=== PATIENT | female | born 1955 | race African-American/Black ===

== ENCOUNTER 2019-05-08 17:51 | Inpatient (IN) | payer OTHER, MEDICAID ==
[~2019-05-08] VITALS: Ht 157.5 cm; Wt 63.5 kg
[2019-05-08] MEDS ORDERED: IV NORMAL SALINE 1000ML BAG 1,000 ML IV ONE (19:00)
[2019-05-08] MEDS ORDERED: DEXAMETHASONE SOD PHOS 20 MG/5 ML VIAL. IV ONE (19:00)
[2019-05-08] MEDS ORDERED: IPRATRPIUM/ALBUTEROL 0.5/2.5MG 3 ML NEBU. NEB ONE (19:00)
--- NOTE | 2019-05-08 19:26 | PHYS DOC ---
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 She was diagnosed with small cell lung cancer May 2018 and completed chemotherapy and radiation in October 2018; scheduled for follow-up w/ body scan for this Wednesday, June 10 at [facility] on the [place]. Patient was seen and prescribed amoxicillin on Wednesday for bronchitis but has not noticed a change in her shortness of breath. Patient has had to elevate her head with 2 "fluffy" pillows to aid in her breathing when sleeping. Reports dizziness associated w/ coughing and standing from seated position; has caused the patient to fall several times this past year w/ most recent fall this past last week, no LOC or head trauma. Patient is not on oxygen at home. Denies sick contacts, strenuous activity, or other potentially identifiable inciting trigger. Review of Systems Review of Systems Constitutional: Denies fever or chills Eyes: Denies redness or eye pain HENT: Denies nasal congestion or sore throat Respiratory: Reports shortness of breath w/ productive cough of thin, clear sputum Cardiovascular: Denies chest pain or palpitations GI: Reports chronic intermittent constipation. Denies abdominal pain, nausea, vomiting, diarrhea, or hematochezia. : Denies dysuria or hematuria Musculoskeletal: Denies back pain or joint pain Integument: Denies rash or skin lesions Neurologic: Reports intermittent dizziness. Denies headache, focal weakness, sensory changes, or LOC. Complete systems were reviewed and found to be within normal limits, except as documented in this note. Current Medications Current Medications Current Medications Medications (Trade) Dose Ordered Sig/Galileo Start Time Stop Time Status Last Admin Dose Admin Acetaminophen (Tylenol) 500 mg 1X ONCE 05/08/19 23:00 05/08/19 23:01 DC 05/08/19 23:14 500 MG Albuterol/ Ipratropium (Duoneb) 3 ml 1X ONCE 05/08/19 19:00 05/08/19 19:01 DC 05/08/19 19:28 3 ML Alteplase, Recombinant (Cathflo For Central Catheter Clearance) 1 mg 1X ONCE 05/08/19 20:30 05/08/19 20:31 DC 05/08/19 20:24 1 MG Dexamethasone Sodium Phosphate (Decadron) 10 mg 1X ONCE 05/08/19 19:00 05/08/19 19:01 DC 05/08/19 23:07 10 MG Info (CONTRAST GIVEN -- Rx MONITORING) 1 each PRN DAILY PRN 05/08/19 21:30 05/10/19 21:29 Iohexol (Omnipaque 350 Mg/ml) 90 ml 1X ONCE 05/08/19 21:30 05/08/19 21:31 DC 05/08/19 21:46 90 ML Sodium Chloride 1,000 ml @ 1,000 mls/hr 1X ONCE 05/08/19 19:00 05/08/19 19:59 DC 05/08/19 23:07 1,000 MLS/HR Allergies Allergies Allergies Coded Allergies Type Severity Reaction Last Updated Verified No Known Drug Allergies 08/02/14 No Physical Exam Physical Exam Constitutional: pleasant, conversational, spoke w/o pausing, well developed, well nourished, no acute distress, non-toxic appearance HENT: Normocephalic, atraumatic, oropharynx moist Eyes: PERRL, EOMI, conjunctiva normal, no discharge Neck: Normal range of motion, no tenderness, supple, no cervical or supraclavicular LAD Cardiovascular: Heart RRR w/o gallops, rubs, or murmurs; UE radial pulse intact 2/4 b/l Lungs & Thorax: Bilateral breath sounds clear to auscultation, no wheezing Abdomen: soft, non-tender, non-distended Skin: mildly cool to touch, dry, no erythema, no rash Back: No tenderness, no CVA tenderness Extremities: No tenderness, no edema Neurologic: Alert and oriented X 3, normal motor function, normal sensory function, no focal deficits noted Psychologic: Affect normal, judgement normal, mood normal Current Patient Data Vital Signs Vital Signs Date Time Temp Pulse Resp B/P (MAP) Pulse Ox O2 Delivery O2 Flow Rate FiO2 05/09/19 00:00 110 121/63 (82) 94 Nasal Cannula 2.0 05/08/19 23:30 23 05/08/19 18:10 98.1 98.1 Lab Values Laboratory Tests Test 05/08/19 20:40 05/08/19 22:24 White Blood Count 5.3 x10^3/uL (4.0-11.0) Red Blood Count 3.80 x10^6/uL (3.50-5.40) Hemoglobin 11.3 g/dL (12.0-15.5) L Hematocrit 33.1 % (36.0-47.0) L Mean Corpuscular Volume 87 fL (79-100) Mean Corpuscular Hemoglobin 30 pg (25-35) Mean Corpuscular Hemoglobin Concent 34 g/dL (31-37) Red Cell Distribution Width 15.0 % (11.5-14.5) H Platelet Count 261 x10^3/uL (140-400) Neutrophils (%) (Auto) 84 % (31-73) H Lymphocytes (%) (Auto) 9 % (24-48) L Monocytes (%) (Auto) 6 % (0-9) Eosinophils (%) (Auto) 1 % (0-3) Basophils (%) (Auto) 0 % (0-3) Neutrophils # (Auto) 4.4 x10^3/uL (1.8-7.7) Lymphocytes # (Auto) 0.5 x10^3/uL (1.0-4.8) L Monocytes # (Auto) 0.3 x10^3/uL (0.0-1.1) Eosinophils # (Auto) 0.0 x10^3/uL (0.0-0.7) Basophils # (Auto) 0.0 x10^3/uL (0.0-0.2) Prothrombin Time 13.6 SEC (11.7-14.0) Prothrombin Time INR 1.1 (0.8-1.1) PTT 34 SEC (24-38) Sodium Level 124 mmol/L (136-145) L Potassium Level 3.5 mmol/L (3.5-5.1) Chloride Level 88 mmol/L (98-107) L Carbon Dioxide Level 22 mmol/L (21-32) Anion Gap 14 (6-14) Blood Urea Nitrogen 6 mg/dL (7-20) L Creatinine 0.6 mg/dL (0.6-1.0) Estimated GFR (Cockcroft-Gault) 122.2 BUN/Creatinine Ratio 10 (6-20) Glucose Level 124 mg/dL (70-99) H Lactic Acid Level 1.5 mmol/L (0.4-2.0) Calcium Level 9.1 mg/dL (8.5-10.1) Magnesium Level 1.8 mg/dL (1.8-2.4) Total Bilirubin 0.5 mg/dL (0.2-1.0) Aspartate Amino Transferase (AST) 16 U/L (15-37) Alanine Aminotransferase (ALT) 15 U/L (14-59) Alkaline Phosphatase 48 U/L (46-116) Creatine Kinase 193 U/L (26-192) H Creatine Kinase MB (Mass) 7.0 ng/mL (0.0-3.6) H Creatine Kinase MB Relative Index 3.6 % (0-4) Troponin I Quantitative < 0.017 ng/mL (0.000-0.055) RA-Vhr-R-Type Natriuretic Peptide 261 pg/mL (0-124) H Total Protein 7.9 g/dL (6.4-8.2) Albumin 3.2 g/dL (3.4-5.0) L Albumin/Globulin Ratio 0.7 (1.0-1.7) L Urine Collection Type Unknown Urine Color Yellow Urine Clarity Clear Urine pH 6.0 Urine Specific [place] >=1.030 Urine Protein Negative mg/dL (NEG-TRACE) Urine Glucose (UA) Negative mg/dL (NEG) Urine Ketones (Stick) 15 mg/dL (NEG) Urine Blood Negative (NEG) Urine Nitrite Negative (NEG) Urine Bilirubin Negative (NEG) Urine Urobilinogen Dipstick 2.0 mg/dL (0.2 mg/dL) Urine Leukocyte Esterase Trace (NEG) Urine RBC 0 /HPF (0-2) Urine WBC 1-4 /HPF (0-4) Urine Squamous Epithelial Cells Mod /LPF Urine Bacteria Few /HPF (0-FEW) Urine Mucus Slight /LPF Laboratory Tests 05/08/19 20:40 Laboratory Tests 05/08/19 20:40 EKG EKG @2013 Sinus tachycardia at 136bpm, NO ST elevation, occasional PVC, low voltage QRS Radiology/Procedures Radiology/Procedures PROCEDURE: CT ANGIOGRAPHY CHEST Exam: CT of chest with contrast INDICATION: Shortness of breath TECHNIQUE: Sequential axial images through the chest obtained following the administration of 90 mL of Omnipaque 350 IV contrast. Sagittal and coronal reformatted images were reconstructed from the axial data and reviewed. Comparisons: None FINDINGS: Visualized portions of the thyroid are unremarkable. Enlarged mediastinal lymph nodes diffusely present, for example noted at the AP window series 3 image 63 measures 1.9 cm. Additionally right cardiophrenic conglomerate lymphadenopathy measuring 3.9 x 2.3 cm. There is a right hilar/suprahilar mass which is difficult to measure likely measuring approximately 7.5 x 5.2 cm. Heart size is normal. There is a small pericardial effusion. Thoracic aorta has a normal course and caliber. Pulmonary artery is not enlarged. There is attenuation of right upper lobe pulmonary artery secondary to the aforementioned mass. Otherwise, no pulmonary embolus identified within the main, lobar or segmental pulmonary arteries. Marked narrowing of the right upper lobe and middle lobe bronchus secondary to mass effect. Otherwise, the airways are patent. Consolidative patchy opacity noted within the right perihilar region. There is irregular septal thickening noted within the aerated right upper lobe. Additionally numerous bilateral pulmonary nodules are noted, for example left upper lobe nodule measuring 1 cm series 3 image 64. There is a moderate to large right-sided pleural effusion. There is thickening of the left adrenal gland measuring approximately 1.4 cm. Otherwise, the visualized upper abdomen is unremarkable. Left anterior chest wall port with catheter tip in the right atrium. No suspicious osseous lesions or acute fractures. IMPRESSION: 1. Findings consistent with malignancy within the right hilum with a large mass measuring at least 7.5 x 5.2 cm causing compression of the adjacent hilar structures. 2. No pulmonary emboli identified within the main, lobar or segmental pulmonary arteries. 3. Findings likely representing metastatic disease including mediastinal lymphadenopathy, multiple pulmonary nodules, and moderate to large right pleural effusion. Exposure: One or more of the following in the visualized dose reduction techniques were utilized for this examination: 1. Automated exposure control 2. Adjustment of the MA and/or KV according to patient size 3. Use of iterative of reconstructive technique Electronically signed by: Alexander Feliciano MD (05/08/2019 10:10 PM) [facility] Course & Med Decision Making Course & Med Decision Making Pertinent Labs and Imaging studies reviewed. (See chart for details) Patient presented w/ shortness of breath. Pulse ox 91% on RA during patient interview; patient given 2L via nasal canula and pulse ox improved to 95%. Duoneb breathing treatment administered. CT Angio [] Dragon Disclaimer Dragon Disclaimer This electronic medical record was generated, in whole or in part, using a voice recognition dictation system. Departure Departure Impression: Primary Impression: Hypoxia Additional Impressions: Large pleural effusion Lung cancer Disposition: ADMITTED INPATIENT Admitting Physician: Yogi Kohler Condition: GUARDED Referrals: Jose KOHLER MD (PCP) Critical Care Time Critical care time was 30 minutes which includes time at bedside, spent in discussion of patient's care with specialists and/or family members, with interpretation of laboratory and/or radiological studies and is exclusive of procedures. Problem Qualifiers Additional Impressions: Lung cancer Laterality: right Lung location: hilum of lung Qualified Codes: C34.01 - Malignant neoplasm of right main bronchus VISHAL SMITH DO May 08, 2019 19:25
[2019-05-08] MEDS ORDERED: ALTEPLASE 1MG SYRINGE. INT CAT ONE (20:30)
[2019-05-08 20:58] LABS: BASO % 0 % (0-3); EOS % 1 % (0-3); HEMATOCRIT 33.1 % (36.0-47.0); HEMOGLOBIN 11.3 g/dL (12.0-15.5); LYMPH # 0.5 x10^3/uL (1.0-4.8); LYMPH % 9 % (24-48); MEAN CORPUSCULAR HEMOGLOBIN 30 pg (25-35); MEAN CORPUSCULAR HGB CONC 34 g/dL (31-37); MEAN CORPUSCULAR VOLUME 87 fL (79-100); MONO # 0.3 x10^3/uL (0.0-1.1); MONO % 6 % (0-9); NEUT # 4.4 x10^3/uL (1.8-7.7); NEUT % 84 % (31-73); PLATELET COUNT 261 x10^3/uL (140-400); WHITE BLOOD COUNT 5.3 x10^3/uL (4.0-11.0)
[2019-05-08 21:07] LABS: PROTHROMBIN TIME PATIENT 13.6 SEC (11.7-14.0)
[2019-05-08 21:11] LABS: CALCIUM 9.1 mg/dL (8.5-10.1); CREATININE 0.6 mg/dL (0.6-1.0); GFR 122.2; POTASSIUM 3.5 mmol/L (3.5-5.1)
[2019-05-08 21:16] LABS: ALBUMIN 3.2 g/dL (3.4-5.0); ALBUMIN/GLOBULIN RATIO 0.7 (1.0-1.7); MAGNESIUM 1.8 mg/dL (1.8-2.4); TOTAL BILIRUBIN 0.5 mg/dL (0.2-1.0); TOTAL PROTEIN 7.9 g/dL (6.4-8.2)
[2019-05-08] MEDS ORDERED: CONTRAST GIVEN. MC PRN (21:30)
[2019-05-08] MEDS ORDERED: IOHEXOL 350 MG/ML 100 ML VIAL. IV ONE (21:30)
--- NOTE | 2019-05-08 22:12 | RAD ---
Exam: CT of chest with contrast INDICATION: Shortness of breath TECHNIQUE: Sequential axial images through the chest obtained following the administration of 90 mL of Omnipaque 350 IV contrast. Sagittal and coronal reformatted images were reconstructed from the axial data and reviewed. Comparisons: None FINDINGS: Visualized portions of the thyroid are unremarkable. Enlarged mediastinal lymph nodes diffusely present, for example noted at the AP window series 3 image 63 measures 1.9 cm. Additionally right cardiophrenic conglomerate lymphadenopathy measuring 3.9 x 2.3 cm. There is a right hilar/suprahilar mass which is difficult to measure likely measuring approximately 7.5 x 5.2 cm. Heart size is normal. There is a small pericardial effusion. Thoracic aorta has a normal course and caliber. Pulmonary artery is not enlarged. There is attenuation of right upper lobe pulmonary artery secondary to the aforementioned mass. Otherwise, no pulmonary embolus identified within the main, lobar or segmental pulmonary arteries. Marked narrowing of the right upper lobe and middle lobe bronchus secondary to mass effect. Otherwise, the airways are patent. Consolidative patchy opacity noted within the right perihilar region. There is irregular septal thickening noted within the aerated right upper lobe. Additionally numerous bilateral pulmonary nodules are noted, for example left upper lobe nodule measuring 1 cm series 3 image 64. There is a moderate to large right-sided pleural effusion. There is thickening of the left adrenal gland measuring approximately 1.4 cm. Otherwise, the visualized upper abdomen is unremarkable. Left anterior chest wall port with catheter tip in the right atrium. No suspicious osseous lesions or acute fractures. IMPRESSION: 1. Findings consistent with malignancy within the right hilum with a large mass measuring at least 7.5 x 5.2 cm causing compression of the adjacent hilar structures. 2. No pulmonary emboli identified within the main, lobar or segmental pulmonary arteries. 3. Findings likely representing metastatic disease including mediastinal lymphadenopathy, multiple pulmonary nodules, and moderate to large right pleural effusion. Exposure: One or more of the following in the visualized dose reduction techniques were utilized for this examination: 1. Automated exposure control 2. Adjustment of the MA and/or KV according to patient size 3. Use of iterative of reconstructive technique Electronically signed by: Alexander Feliciano MD (05/08/2019 10:10 PM) [facility]
[2019-05-08] MEDS ORDERED: ACETAMINOPHEN 500 MG TABLET PO ONE (23:00)
[2019-05-08 23:43] LABS: BILIRUBIN,URINE NEGATIVE (NEG); CLARITY,URINE CLEAR; COLOR,URINE YELLOW; NITRITE,URINE NEGATIVE (NEG); PROTEIN,URINE NEGATIVE (NEG-TRACE)
[2019-05-08 23:48] LABS: SQUAMOUS EPITHELIAL CELL,UR MOD /LPF
[2019-05-08 23:49] LABS: BACTERIA,URINE FEW /HPF (0-FEW); RBC,URINE 0 /HPF (0-2)
[2019-05-09] VITALS (15 sets, daily range): BP systolic 85–155; BP diastolic 61–99
[2019-05-09] MEDS ORDERED: fentaNYL PF VIAL 100 MCG/2 ML VIAL IV PRN (00:45)
[2019-05-09] MEDS ORDERED: ONDANSETRON PF 4 MG/2 ML VIAL. IV PRN (00:45)
[2019-05-09] MEDS ORDERED: BENZ0.5T32 PO (04:22)
[2019-05-09] MEDS ORDERED: ACET500T68 PO (04:22)
[2019-05-09] MEDS ORDERED: FLUP5TAB PO ×2 (04:22→17:43)
[2019-05-09] MEDS ORDERED: AMOX500T PO (04:22)
--- NOTE | 2019-05-09 05:53 | EKG ---
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
[2019-05-09] MEDS: IPRATRPIUM/ALBUTEROL 0.5/2.5MG 3 ML NEBU. NEB SCH ×4 (08:11→19:14)
[2019-05-09] MEDS: cefTRIAXone IV Push 1 GM VIAL. IVP SCH (10:24)
--- NOTE | 2019-05-09 10:25 | CONS ---
DATE OF CONSULTATION: 05/09/2019 PULMONARY CONSULTATION ATTENDING PHYSICIAN: Dr. Duong Kohler. REASON FOR CONSULTATION: Abnormal CT chest, lung cancer, pleural effusion, dyspnea. HISTORY OF PRESENT ILLNESS: The patient is a 63-year-old female who has history of small cell lung cancer, diagnosed in May of last year and has been treated with chemotherapy and radiation at [facility]. The patient presented to the hospital with 2 weeks of progressive dyspnea. She says she has a cough which has been with clear sputum. No fever, no chills, no chest pains. No headaches, no nausea, vomiting or diarrhea. She has no hemoptysis. She has lost about 20 pounds in the last 1 year. The patient says that she never had any thoracentesis done previously. She is not on oxygen, but currently she is requiring oxygen at 4 liters. I reviewed the patient's CT chest on admission. She has a right hilar mass, measuring about 7.5 cm in size with compression of the right upper lobe bronchus. There is no pulmonary emboli seen. She has evidence of mediastinal adenopathy and multiple pulmonary nodules and also moderate right-sided pleural effusion. No old scans were available for comparison that she normally sees at Oncology at [facility]. PAST MEDICAL HISTORY: 1. History of small cell lung cancer diagnosed in 2017 and status post chemotherapy and radiation, which she finished in 10/2018 and the cancer was diagnosed in 05/2018. 2. History of schizophrenia. PAST SURGICAL HISTORY: Tubal ligation. SOCIAL HISTORY: Quit less than a year ago, before that she smoked up to 2 packs per day for 30 years. REVIEW OF SYSTEMS: Twelve-point system obtained. Pertinent positives discussed in my history of present illness, otherwise noncontributory. All systems that were negative were reviewed as well. ALLERGIES: None. CURRENT MEDICATIONS: Reviewed as listed in the MRAD. FAMILY HISTORY: Noncontributory to lungs. PHYSICAL EXAMINATION: VITAL SIGNS: Reviewed. She is afebrile, blood pressure stable, pulse ox 93% on 4 liters. NECK: Supple, no JVD. LUNGS: With diminished breath sounds at right base. CARDIOVASCULAR: Regular rate and rhythm. ABDOMEN: Soft, nontender. EXTREMITIES: With no pitting edema. LABORATORY DATA: Reviewed. White cell count 5.3, hemoglobin 11.3 and platelets are 261. BUN and creatinine 6 and 0.6. INR 1.1. IMPRESSION: 1. Acute hypoxic respiratory failure secondary to progressive small cell lung cancer with new moderate sized right pleural effusion. 2. The patient with history of small cell cancer diagnosed in 05/2018 and completed chemotherapy and radiation in 10/2018. Now, she has a 7.2 cm right hilar/suprahilar mass, which causing compression of the right lower lobe bronchus. There are multiple nodules. There is moderate right pleural effusion. Radiographically, suspect there is progression of her cancer. There is no old scan available for comparison as she has been followed at [facility]. 3. Underlying chronic obstructive pulmonary disease, contributing to the patient's respiratory failure. 4. Likely postobstructive pneumonia. 5. Hyponatremia, related to small cell lung cancer. RECOMMENDATIONS: 1. Discussed with the patient. At this point, she is agreeable to proceed with thoracentesis. 2. If the fluid reoccurs, then she would benefit from PleurX catheter. I would have her referred back to [facility], where this procedure can be done. 3. Gradually wean oxygen once thoracentesis is done. 4. Add empiric antibiotics. 5. Continue DuoNebs. 6. Follow sodium level. 7. Discussed with RN. We will follow along with you. Consider Oncology consult. MIGUE CLIFFORD MD DR: ABIODUN/erick JOB#: [id number] / [id number]
--- NOTE | 2019-05-09 12:59 | PDOC1 ---
History and Physical Date of Admission Date of Admission 05/09/19 Identification/Chief Complaint Chief Complaint SOA Problems: (1) Large pleural effusion (2) Lung cancer Source Source: Chart review, Patient History of Present Illness History of Present Illness Came to ER due to progressive shortness of breath without acute infectious symptoms, no fever, chills, no cough, no hemoptysis, no swelling in legs, no recent travel, no hx of TB exposure but she has been diagnosed with NSCLC a yr ago and is s/p chemo/radiation at [facility]. She has seen Dr. Parks once at our office in 2017 and advised then to quit smoking but did not, she now claims me as her PCP but I have never met her prior to today. Past Medical History Cardiovascular: No pertinent hx Pulmonary: Other (lung cancer) GI: No pertinent hx Heme/Onc: Cancer Hepatobiliary: No pertinent hx Psych: Schizophrenia Rheumatologic: No pertinent hx Infectious disease: No pertinent hx ENT: No pertinent hx Renal/: No pertinent hx Endocrine: No pertinent hx Dermatology: No pertinent hx Past Surgical History Past Surgical History: Tubal Ligation (removal of lipoma of face) Family History Family History parents Social History Smoke: Quit (was a 2 pack a day smoker for most of her life) Drugs: None Current Medications Current Medications Current Medications Medications (Trade) Dose Ordered Sig/Galileo Start Time Stop Time Status Last Admin Dose Admin Acetaminophen (Tylenol) 500 mg 1X ONCE 05/08/19 23:00 05/08/19 23:01 DC 05/08/19 23:14 500 MG Albuterol/ Ipratropium (Duoneb) 3 ml RTQID 05/09/19 08:00 05/10/19 07:59 05/09/19 08:11 3 ML Alteplase, Recombinant (Cathflo For Central Catheter Clearance) 1 mg 1X ONCE 05/08/19 20:30 05/08/19 20:31 DC 05/08/19 20:24 1 MG Ceftriaxone Sodium (Rocephin) 1 gm Q24H 05/09/19 10:00 05/09/19 10:24 1 GM Dexamethasone Sodium Phosphate (Decadron) 10 mg 1X ONCE 05/08/19 19:00 05/08/19 19:01 DC 05/08/19 23:07 10 MG Fentanyl Citrate (Fentanyl 2ml Vial) 50 mcg PRN Q2HR PRN 05/09/19 00:45 Info (CONTRAST GIVEN -- Rx MONITORING) 1 each PRN DAILY PRN 05/08/19 21:30 05/10/19 21:29 Iohexol (Omnipaque 350 Mg/ml) 90 ml 1X ONCE 05/08/19 21:30 05/08/19 21:31 DC 05/08/19 21:46 90 ML Ondansetron HCl (Zofran) 4 mg PRN Q8HRS PRN 05/09/19 00:45 05/10/19 00:44 Sodium Chloride 1,000 ml @ 1,000 mls/hr 1X ONCE 05/08/19 19:00 05/08/19 19:59 DC 05/08/19 23:07 1,000 MLS/HR Allergies Allergies Allergies Coded Allergies Type Severity Reaction Last Updated Verified No Known Drug Allergies 08/02/14 No ROS Review of System CONSTITUTIONAL: No fever or chills EYES: No recent changes SKIN: No rash or itching CARDIOVASCULAR: No chest pain, syncope, palpitations, or edema RESPIRATORY: see HPI GASTROINTESTINAL: No nausea, vomiting or abdominal pain NEUROLOGICAL: No headaches or weakness ENDOCRINE: No cold or heat intolerance GENITOURINARY: No urgency or frequency of urination MUSCULOSKELETAL: No back pain or joint pain LYMPHATICS: No enlarged lymph nodes PSYCHIATRIC: No anxiety or depression Physical Exam Physical Exam GEN.: No apparent distress. Alert and oriented. HEENT: Head is normocephalic, atraumatic NECK: Supple. LUNGS: diminished in base, no wheezes or rhonchi HEART: RRR, S1, S2 present. Peripheral pulses intact ABDOMEN: Soft, nontender. Positive bowel sounds. EXTREMITIES: Without any cyanosis. NEUROLOGIC: Normal speech, normal tone PSYCHIATRIC: Normal affect, normal mood. SKIN: No ulcerations Vitals Vitals Vital Signs Date Time Temp Pulse Resp B/P (MAP) Pulse Ox O2 Delivery O2 Flow Rate FiO2 05/09/19 11:00 97.4 114 16 102/62 (75) 93 Nasal Cannula 4.0 97.4 Labs Labs Laboratory Tests Test 05/08/19 20:40 05/08/19 22:24 White Blood Count 5.3 x10^3/uL (4.0-11.0) Red Blood Count 3.80 x10^6/uL (3.50-5.40) Hemoglobin 11.3 g/dL (12.0-15.5) Hematocrit 33.1 % (36.0-47.0) Mean Corpuscular Volume 87 fL (79-100) Mean Corpuscular Hemoglobin 30 pg (25-35) Mean Corpuscular Hemoglobin Concent 34 g/dL (31-37) Red Cell Distribution Width 15.0 % (11.5-14.5) Platelet Count 261 x10^3/uL (140-400) Neutrophils (%) (Auto) 84 % (31-73) Lymphocytes (%) (Auto) 9 % (24-48) Monocytes (%) (Auto) 6 % (0-9) Eosinophils (%) (Auto) 1 % (0-3) Basophils (%) (Auto) 0 % (0-3) Neutrophils # (Auto) 4.4 x10^3/uL (1.8-7.7) Lymphocytes # (Auto) 0.5 x10^3/uL (1.0-4.8) Monocytes # (Auto) 0.3 x10^3/uL (0.0-1.1) Eosinophils # (Auto) 0.0 x10^3/uL (0.0-0.7) Basophils # (Auto) 0.0 x10^3/uL (0.0-0.2) Prothrombin Time 13.6 SEC (11.7-14.0) Prothromb Time International Ratio 1.1 (0.8-1.1) Activated Partial Thromboplast Time 34 SEC (24-38) Sodium Level 124 mmol/L (136-145) Potassium Level 3.5 mmol/L (3.5-5.1) Chloride Level 88 mmol/L (98-107) Carbon Dioxide Level 22 mmol/L (21-32) Anion Gap 14 (6-14) Blood Urea Nitrogen 6 mg/dL (7-20) Creatinine 0.6 mg/dL (0.6-1.0) Estimated GFR (Cockcroft-Gault) 122.2 BUN/Creatinine Ratio 10 (6-20) Glucose Level 124 mg/dL (70-99) Lactic Acid Level 1.5 mmol/L (0.4-2.0) Calcium Level 9.1 mg/dL (8.5-10.1) Magnesium Level 1.8 mg/dL (1.8-2.4) Total Bilirubin 0.5 mg/dL (0.2-1.0) Aspartate Amino Transf (AST/SGOT) 16 U/L (15-37) Alanine Aminotransferase (ALT/SGPT) 15 U/L (14-59) Alkaline Phosphatase 48 U/L (46-116) Creatine Kinase 193 U/L (26-192) Creatine Kinase MB (Mass) 7.0 ng/mL (0.0-3.6) Creatine Kinase MB Relative Index 3.6 % (0-4) Troponin I Quantitative < 0.017 ng/mL (0.000-0.055) OQ-Kbf-R-Type Natriuretic Peptide 261 pg/mL (0-124) Total Protein 7.9 g/dL (6.4-8.2) Albumin 3.2 g/dL (3.4-5.0) Albumin/Globulin Ratio 0.7 (1.0-1.7) Urine Collection Type Unknown Urine Color Yellow Urine Clarity Clear Urine pH 6.0 Urine Specific [place] >=1.030 Urine Protein Negative mg/dL (NEG-TRACE) Urine Glucose (UA) Negative mg/dL (NEG) Urine Ketones (Stick) 15 mg/dL (NEG) Urine Blood Negative (NEG) Urine Nitrite Negative (NEG) Urine Bilirubin Negative (NEG) Urine Urobilinogen Dipstick 2.0 mg/dL (0.2 mg/dL) Urine Leukocyte Esterase Trace (NEG) Urine RBC 0 /HPF (0-2) Urine WBC 1-4 /HPF (0-4) Urine Squamous Epithelial Cells Mod /LPF Urine Bacteria Few /HPF (0-FEW) Urine Mucus Slight /LPF Laboratory Tests Test 05/08/19 20:40 05/08/19 22:24 White Blood Count 5.3 x10^3/uL (4.0-11.0) Red Blood Count 3.80 x10^6/uL (3.50-5.40) Hemoglobin 11.3 g/dL (12.0-15.5) Hematocrit 33.1 % (36.0-47.0) Mean Corpuscular Volume 87 fL (79-100) Mean Corpuscular Hemoglobin 30 pg (25-35) Mean Corpuscular Hemoglobin Concent 34 g/dL (31-37) Red Cell Distribution Width 15.0 % (11.5-14.5) Platelet Count 261 x10^3/uL (140-400) Neutrophils (%) (Auto) 84 % (31-73) Lymphocytes (%) (Auto) 9 % (24-48) Monocytes (%) (Auto) 6 % (0-9) Eosinophils (%) (Auto) 1 % (0-3) Basophils (%) (Auto) 0 % (0-3) Neutrophils # (Auto) 4.4 x10^3/uL (1.8-7.7) Lymphocytes # (Auto) 0.5 x10^3/uL (1.0-4.8) Monocytes # (Auto) 0.3 x10^3/uL (0.0-1.1) Eosinophils # (Auto) 0.0 x10^3/uL (0.0-0.7) Basophils # (Auto) 0.0 x10^3/uL (0.0-0.2) Prothrombin Time 13.6 SEC (11.7-14.0) Prothromb Time International Ratio 1.1 (0.8-1.1) Activated Partial Thromboplast Time 34 SEC (24-38) Sodium Level 124 mmol/L (136-145) Potassium Level 3.5 mmol/L (3.5-5.1) Chloride Level 88 mmol/L (98-107) Carbon Dioxide Level 22 mmol/L (21-32) Anion Gap 14 (6-14) Blood Urea Nitrogen 6 mg/dL (7-20) Creatinine 0.6 mg/dL (0.6-1.0) Estimated GFR (Cockcroft-Gault) 122.2 BUN/Creatinine Ratio 10 (6-20) Glucose Level 124 mg/dL (70-99) Lactic Acid Level 1.5 mmol/L (0.4-2.0) Calcium Level 9.1 mg/dL (8.5-10.1) Magnesium Level 1.8 mg/dL (1.8-2.4) Total Bilirubin 0.5 mg/dL (0.2-1.0) Aspartate Amino Transf (AST/SGOT) 16 U/L (15-37) Alanine Aminotransferase (ALT/SGPT) 15 U/L (14-59) Alkaline Phosphatase 48 U/L (46-116) Creatine Kinase 193 U/L (26-192) Creatine Kinase MB (Mass) 7.0 ng/mL (0.0-3.6) Creatine Kinase MB Relative Index 3.6 % (0-4) Troponin I Quantitative < 0.017 ng/mL (0.000-0.055) SF-Eck-L-Type Natriuretic Peptide 261 pg/mL (0-124) Total Protein 7.9 g/dL (6.4-8.2) Albumin 3.2 g/dL (3.4-5.0) Albumin/Globulin Ratio 0.7 (1.0-1.7) Urine Collection Type Unknown Urine Color Yellow Urine Clarity Clear Urine pH 6.0 Urine Specific [place] >=1.030 Urine Protein Negative mg/dL (NEG-TRACE) Urine Glucose (UA) Negative mg/dL (NEG) Urine Ketones (Stick) 15 mg/dL (NEG) Urine Blood Negative (NEG) Urine Nitrite Negative (NEG) Urine Bilirubin Negative (NEG) Urine Urobilinogen Dipstick 2.0 mg/dL (0.2 mg/dL) Urine Leukocyte Esterase Trace (NEG) Urine RBC 0 /HPF (0-2) Urine WBC 1-4 /HPF (0-4) Urine Squamous Epithelial Cells Mod /LPF Urine Bacteria Few /HPF (0-FEW) Urine Mucus Slight /LPF Images Images CT CHEST FINDINGS: Visualized portions of the thyroid are unremarkable. Enlarged mediastinal lymph nodes diffusely present, for example noted at the AP window series 3 image 63 measures 1.9 cm. Additionally right cardiophrenic conglomerate lymphadenopathy measuring 3.9 x 2.3 cm. There is a right hilar/suprahilar mass which is difficult to measure likely measuring approximately 7.5 x 5.2 cm. Heart size is normal. There is a small pericardial effusion. Thoracic aorta has a normal course and caliber. Pulmonary artery is not enlarged. There is attenuation of right upper lobe pulmonary artery secondary to the aforementioned mass. Otherwise, no pulmonary embolus identified within the main, lobar or segmental pulmonary arteries. Marked narrowing of the right upper lobe and middle lobe bronchus secondary to mass effect. Otherwise, the airways are patent. Consolidative patchy opacity noted within the right perihilar region. There is irregular septal thickening noted within the aerated right upper lobe. Additionally numerous bilateral pulmonary nodules are noted, for example left upper lobe nodule measuring 1 cm series 3 image 64. There is a moderate to large right-sided pleural effusion. There is thickening of the left adrenal gland measuring approximately 1.4 cm. Otherwise, the visualized upper abdomen is unremarkable. Left anterior chest wall port with catheter tip in the right atrium. No suspicious osseous lesions or acute fractures. IMPRESSION: 1. Findings consistent with malignancy within the right hilum with a large mass measuring at least 7.5 x 5.2 cm causing compression of the adjacent hilar structures. 2. No pulmonary emboli identified within the main, lobar or segmental pulmonary arteries. 3. Findings likely representing metastatic disease including mediastinal lymphadenopathy, multiple pulmonary nodules, and moderate to large right pleural effusion. VTE Prophylaxis Ordered VTE Prophylaxis Devices: No VTE Pharmacological Prophylaxi: Yes (lovenox) Assessment/Plan Assessment/Plan acute respiratory failure likely from recurrent NSCLC with mets and malignant pleural effusion and post obstructive pneumonia - her prior care has been at [facility], pul consulted as she likely needs therapeutic and diagnostic thoracentesis mental illness with hx of schizophrenia - home meds long hx of tobacco smoking - 60 pack yr - she has quit so nicotine replacement not needed DVT prophylaxis with Lovenox once thoracentesis done likely post obstruction pneumonia - IV antibiotics Problem Qualifiers (1) Lung cancer: Laterality: right Lung location: hilum of lung Qualified Codes: C34.01 - Malignant neoplasm of right main bronchus Jose COURTNEY MD May 09, 2019 12:59
[2019-05-09] MEDS: FLUPHENAZINE HCL 2.5 MG TABLET. PO SCH ×2 (13:00→17:00)
[2019-05-09] MEDS ORDERED: ACETAMINOPHEN 500 MG TABLET PO SCH (14:00)
[2019-05-09] MEDS ORDERED: BENZTROPINE MESYLATE 1 MG TABLET. PO SCH ×2 (14:00→21:00)
--- NOTE | 2019-05-09 14:45 | NUR ---
Ginna Condon in IR who stated patient has been running HR in the 130's during the thoracentesis. After arriving back to the floor, patient heart rate continued to be in the 130's. Pt is asymptomatic and all other VSS. Notified Dr. Kohler. He stated to monitor patient and to notify him of any changes. Will continue to monitor.
--- NOTE | 2019-05-09 14:47 | NUR ---
SW following pt for dc planning. Chart reviewed and pt lives at home with family. Pulmonary following. No SW needs noted at this time. Will continue to follow pending dc needs.
[2019-05-09] MEDS ORDERED: ACETAMINOPHEN 325 MG TABLET. PO ONE (15:30)
--- NOTE | 2019-05-09 16:15 | RAD ---
Ultrasound-guided right-sided thoracentesis 05/09/2019 4:11 PM Indication: ct guided right effusion Procedure: Informed consent was obtained. A timeout procedure was performed. Sonographic evaluation of the right chest was performed demonstrating moderate pleural effusion. The right posterior chest was prepped and draped in sterile fashion. 1% lidocaine without epinephrine was administered for local anesthesia. Real-time ultrasonographic guidance was used in passing a 5 [place] catheter into the right pleural space. 1.2L L of serosanguineous pleural fluid was removed. Samples of fluid were sent to the lab for further evaluation per ordering physician request. The catheter was removed and pressure held to achieve hemostasis. A sterile dressing was applied. No immediate complications were identified. The patient tolerated the procedure well. Impression: right sided ultrasound-guided thoracentesis
--- NOTE | 2019-05-09 17:00 | NUR ---
This RN notified of patient blood pressure being SBP in the 80's. Pt is alert and sitting up in bed with daughter eating dinner. 500mL NS bolus started. Dr. Chapa notified. No further orders received. Will continue to monitor.
[2019-05-09] MEDS ORDERED: BENZ1TAB5 PO (17:43)
[2019-05-09] MEDS ORDERED: FLUPHENAZINE HCL 2.5 MG TABLET. PO ONE (19:00)
[2019-05-09] MEDS ORDERED: IV NORMAL SALINE 500ML BAG 500 ML IV ONE (19:00)
[2019-05-09] MEDS ORDERED: BENZTROPINE MESYLATE 1 MG TABLET. PO ONE (19:00)
[2019-05-09] MEDS: ACETAMINOPHEN 325 MG TABLET. PO SCH (19:30)
[2019-05-09] MEDS ORDERED: FLUPHENAZINE HCL 2.5 MG TABLET. PO SCH (21:00)
[2019-05-10 03:11] VITALS: BP 109/63
[2019-05-10 05:10] LABS: CHOLESTEROL/HDL RATIO 2.4
[2019-05-10 07:55] VITALS: BP 124/59
[2019-05-10] MEDS: FLUPHENAZINE HCL 2.5 MG TABLET. PO SCH ×2 (09:00→09:27)
[2019-05-10] MEDS: BENZTROPINE MESYLATE 1 MG TABLET. PO SCH ×2 (09:13→09:28)
[2019-05-10] MEDS: ACETAMINOPHEN 325 MG TABLET. PO SCH ×2 (09:13→13:35)
[2019-05-10] MEDS: cefTRIAXone IV Push 1 GM VIAL. IVP SCH (09:16)
--- NOTE | 2019-05-10 10:49 | PDOC ---
PULMONARY PROGRESS NOTES Subjective feels better post tap Vitals Vital Signs Date Time Temp Pulse Resp B/P (MAP) Pulse Ox O2 Delivery O2 Flow Rate FiO2 05/10/19 08:10 Nasal Cannula 4.0 05/10/19 07:55 97.8 120 20 124/59 (80) 94 97.8 ROS: No Chest Pain, No Increase Cough General: Alert, No acute distress Lungs: Other (decrease bases) Abdomen: Soft Neuro Exam: Alert Extremities: No Edema Skin: Warm Labs Laboratory Tests Test 05/08/19 20:40 05/08/19 22:24 05/10/19 03:20 White Blood Count 5.3 x10^3/uL (4.0-11.0) Red Blood Count 3.80 x10^6/uL (3.50-5.40) Hemoglobin 11.3 g/dL (12.0-15.5) Hematocrit 33.1 % (36.0-47.0) Mean Corpuscular Volume 87 fL (79-100) Mean Corpuscular Hemoglobin 30 pg (25-35) Mean Corpuscular Hemoglobin Concent 34 g/dL (31-37) Red Cell Distribution Width 15.0 % (11.5-14.5) Platelet Count 261 x10^3/uL (140-400) Neutrophils (%) (Auto) 84 % (31-73) Lymphocytes (%) (Auto) 9 % (24-48) Monocytes (%) (Auto) 6 % (0-9) Eosinophils (%) (Auto) 1 % (0-3) Basophils (%) (Auto) 0 % (0-3) Neutrophils # (Auto) 4.4 x10^3/uL (1.8-7.7) Lymphocytes # (Auto) 0.5 x10^3/uL (1.0-4.8) Monocytes # (Auto) 0.3 x10^3/uL (0.0-1.1) Eosinophils # (Auto) 0.0 x10^3/uL (0.0-0.7) Basophils # (Auto) 0.0 x10^3/uL (0.0-0.2) Prothrombin Time 13.6 SEC (11.7-14.0) Prothromb Time International Ratio 1.1 (0.8-1.1) Activated Partial Thromboplast Time 34 SEC (24-38) Sodium Level 124 mmol/L (136-145) Potassium Level 3.5 mmol/L (3.5-5.1) Chloride Level 88 mmol/L (98-107) Carbon Dioxide Level 22 mmol/L (21-32) Anion Gap 14 (6-14) Blood Urea Nitrogen 6 mg/dL (7-20) Creatinine 0.6 mg/dL (0.6-1.0) Estimated GFR (Cockcroft-Gault) 122.2 BUN/Creatinine Ratio 10 (6-20) Glucose Level 124 mg/dL (70-99) Lactic Acid Level 1.5 mmol/L (0.4-2.0) Calcium Level 9.1 mg/dL (8.5-10.1) Magnesium Level 1.8 mg/dL (1.8-2.4) Total Bilirubin 0.5 mg/dL (0.2-1.0) Aspartate Amino Transf (AST/SGOT) 16 U/L (15-37) Alanine Aminotransferase (ALT/SGPT) 15 U/L (14-59) Alkaline Phosphatase 48 U/L (46-116) Creatine Kinase 193 U/L (26-192) Creatine Kinase MB (Mass) 7.0 ng/mL (0.0-3.6) Creatine Kinase MB Relative Index 3.6 % (0-4) Troponin I Quantitative < 0.017 ng/mL (0.000-0.055) MH-Bcm-X-Type Natriuretic Peptide 261 pg/mL (0-124) Total Protein 7.9 g/dL (6.4-8.2) Albumin 3.2 g/dL (3.4-5.0) Albumin/Globulin Ratio 0.7 (1.0-1.7) Urine Collection Type Unknown Urine Color Yellow Urine Clarity Clear Urine pH 6.0 Urine Specific [place] >=1.030 Urine Protein Negative mg/dL (NEG-TRACE) Urine Glucose (UA) Negative mg/dL (NEG) Urine Ketones (Stick) 15 mg/dL (NEG) Urine Blood Negative (NEG) Urine Nitrite Negative (NEG) Urine Bilirubin Negative (NEG) Urine Urobilinogen Dipstick 2.0 mg/dL (0.2 mg/dL) Urine Leukocyte Esterase Trace (NEG) Urine RBC 0 /HPF (0-2) Urine WBC 1-4 /HPF (0-4) Urine Squamous Epithelial Cells Mod /LPF Urine Bacteria Few /HPF (0-FEW) Urine Mucus Slight /LPF Triglycerides Level 52 mg/dL (0-150) Cholesterol Level 124 mg/dL (0-200) LDL Cholesterol, Calculated 63 mg/dL (0-100) VLDL Cholesterol, Calculated 10 mg/dL (0-40) Non-HDL Cholesterol Calculated 73 mg/dL (0-129) HDL Cholesterol 51 mg/dL (40-60) Cholesterol/HDL Ratio 2.4 Laboratory Tests Test 05/10/19 03:20 Triglycerides Level 52 mg/dL (0-150) Cholesterol Level 124 mg/dL (0-200) LDL Cholesterol, Calculated 63 mg/dL (0-100) VLDL Cholesterol, Calculated 10 mg/dL (0-40) Non-HDL Cholesterol Calculated 73 mg/dL (0-129) HDL Cholesterol 51 mg/dL (40-60) Cholesterol/HDL Ratio 2.4 Medications Active Scripts Medications Dose Route/Sig Max Daily Dose Days Date Category Benztropine Mesylate 1 Mg Tablet 1 Tab PO BID 05/09/19 Reported Fluphenazine Hcl 5 Mg Tablet 4 Tab PO BID 05/09/19 Reported Acetaminophen 500 Mg Tablet 1 Tab PO TID 05/09/19 Reported Amoxicillin 500 Mg Tablet 500 Mg PO TID 05/09/19 Reported Impression . 1. Acute hypoxic respiratory failure secondary to progressive small cell lung cancer with new moderate sized right pleural effusion. 2. The patient with history of small cell cancer diagnosed in 05/2018 and completed chemotherapy and radiation in 10/2018. Now, she has a 7.2 cm right hilar/suprahilar mass, which causing compression of the right lower lobe bronchus. There are multiple nodules. There is moderate right pleural effusion. Radiographically, suspect there is progression of her cancer. There is no old scan available for comparison as she has been followed at [facility]. 3. Underlying chronic obstructive pulmonary disease, contributing to the patient's respiratory failure. 4. Likely postobstructive pneumonia. 5. Hyponatremia, related to small cell lung cancer. Plan . 1. s/p right thoracentesis. await analysis 2. If the fluid reoccurs, then she would benefit from PleurX catheter. I would have her referred back to [facility], where this procedure can be done. 3. Gradually wean oxygen 4. empiric antibiotics. 5. Continue DuoNebs. 6. Follow sodium level. 7. Discussed with RN./ DR COURTNEY. she can go home and f/u with [facility] oncology MIGUE CLIFFORD MD May 10, 2019 10:49
[2019-05-10] MEDS ORDERED: HEPARIN PF 500 UNIT/5 ML DISP.SYRIN. IV ONE (11:00)
[2019-05-10 11:19] VITALS: BP 115/62
--- NOTE | 2019-05-10 11:59 | PDOC3 ---
Discharge Summary [facility] Date of Admission: May 09, 2019 Discharge Date: May 10, 2019 Admitting Diagnosis acute hypoxic respiratory failure Final Diagnosis (1) Acute respiratory failure with hypoxia Status: Acute (2) COPD (chronic obstructive pulmonary disease) Status: Chronic (3) malignant pleural effusion Status: Acute (4) Lung cancer Status: Chronic (5) Pneumonia, post obstructive Status: Chronic CONSULTS Pulm Procedures thoracentesis, therapeutic and diagnostic Brief Hospital Course is a 63 old [sex] who presented with: 1. Acute hypoxic respiratory failure secondary to progressive small cell lung cancer with new moderate sized right pleural effusion, she underwent thoracentesis for both diagnostic and therapeutic indications and is now breathing well, her need for ongoing O2 will be assessed with a 6 minute walk. 2. recurrent now metastatic NSCLC - new 7.2 cm right hilar/suprahilar mass, which causing compression of the right lower lobe bronchus. There are multiple nodules. There is moderate right pleural effusion. Radiographically, suspect there is progression of her cancer. There is no old scan available for comparison as she has been followed at [facility] and will resume her f/u there at discharge. 3. Underlying chronic obstructive pulmonary disease, contributing to the patient's respiratory failure. 4. Likely postobstructive pneumonia - continue amoxicillin. 5. Hyponatremia, related to small cell lung cancer. 6. schizophrenia - controlled with home meds which she will continue Disposition home with outpatient f/u at [facility] oncology, 6 minute walk to be completed to asses her need for O2 but it is unlikely she will need it until pleural fluid returns, she would be a candidate for a PleurX drain if that occurs Diet regular Scheduled Acetaminophen (Acetaminophen), 1 TAB PO TID, (Reported) Amoxicillin (Amoxicillin), 500 MG PO TID, (Reported) Benztropine Mesylate (Benztropine Mesylate), 1 TAB PO BID, (Reported) Fluphenazine Hcl (Fluphenazine Hcl), 4 TAB PO BID, (Reported) Follow Up office in 1-2 weeks, [facility] oncology 1-2 weeks Jose COURTNEY MD May 10, 2019 11:59
--- NOTE | 2019-05-10 12:47 | NUR ---
Protoxin given this am. This duplicate
--- NOTE | 2019-05-10 14:10 | NUR ---
Discharge instructions given to patient and spouse. Answered questions and concerns. Verbalized understanding. Checked O2 on room air 93%. Pt discharged home and to F/u with oncologist at [facility].
--- NOTE | 2019-05-11 18:06 | PATHOLOGY ---
Note [facility] Accession Number: [id number] TESTS RESULT FLAG UNITS REF RANGE LAB Clinician Provided Cytology Information No. of containers..01 Other (Miscellaneous) Source: [A] 01 RT PLEURAL FLUID DIAGNOSIS: [A] 02 RT PLEURAL FLUID POSITIVE FOR MALIGNANT CELLS. THERE ARE CLUSTERS OF MALIGNANT CELLS PRESENT HAVING CYTOLOGIC AND IMMUNOPHENOTYPIC FEATURES OF SMALL CELL CARCINOMA. THE TUMOR CELLS ARE AE1/AE3, CK7, SYNAPTOPHYSIN, TTF-1,AND CALRETININ (FOCAL) POSITIVE. THE TUMOR CELLS ARE P40 NEGATIVE. THE CASE IS ALSO EXAMINED BY , WHO CONCURS WITH THE DIAGNOSIS. THE RESULTS ARE REPORTED TO DR. BOLTON ON 05/11/19. THIS CASE ALSO INCLUDES EXAMINATION OF A CELL BLOCK. Signed out by: 02 Jordan Felton MD, Pathologist NPI- [id number] Performed by: Isabel Mcnamara, Veterinary Technology Instructor ([facility]) Gross description: 01 30ML, ORANGE, CLOUDY /LCS FLAG LEGEND: L-Low Normal,H-High Normal,LL-Alert Low,HH-Alert High <-Panic Low,>-Panic High,A-Abnormal,AA-Critical Abnormal Performed at: [facility] [address] [place] [address] Duong Grady MD, [address] [facility] [address] [place] [address] Jordan Felton MD, Specimen Comment: A courtesy copy of this report has been sent to Specimen Comment: [phone], , . Specimen Comment: Report sent to ,DR COURTNEY / DR CLIFFORD Specimen Comment: A duplicate report has been generated due to demographic updates. Performed at: [address] [facility], [place], [place] [id number] MD Duong Grady MD Phone: [phone]
== END 2019-05-10 14:10 | disposition home or self-care (01) | DRG 180 ==
LOC: ER 17:51 → 6 SOUTH 05-09 00:13
PROVIDERS: ADMIT Family Medicine; ATTEND Family Medicine
PROC: 0W993ZX Drainage of Right Pleural Cavity, Percutaneous Approach, Diagnostic (ICD-10-PCS; principal; 2019-05-09)
PROC: 0W993ZZ Drainage of Right Pleural Cavity, Percutaneous Approach (ICD-10-PCS; 2019-05-09)
DX: C34.01 Malignant neoplasm of right main bronchus (principal); J96.01 Acute respiratory failure with hypoxia; J18.9 Pneumonia, unspecified organism; E87.1 Hypo-osmolality and hyponatremia; J91.0 Malignant pleural effusion; J44.0 Chronic obstructive pulmonary disease with (acute) lower respiratory infection; F20.9 Schizophrenia, unspecified; Z85.118 Personal history of other malignant neoplasm of bronchus and lung; Z87.891 Personal history of nicotine dependence; Z92.3 Personal history of irradiation; Z92.21 Personal history of antineoplastic chemotherapy; Z98.51 Tubal ligation status
CPT/HCPCS: 32555; 36415; 71275; 80053; 80061; 81001; 82553; 83605; 83615; 83735; 83880; 84157; 84484; 85025; 85610; 85730; 87071; 87075; 87086; 93005; 94618; 94640; 96361; 96374; J0696; J1100; J3010; J7030; J7040; J7620; Q9967; 99285-25